=== PATIENT | male | born 1945 | race Caucasian/White ===

== ENCOUNTER 2019-03-13 16:11 | Emergency (ER) | payer MEDICARE, BC ==
[~2019-03-13] VITALS: Ht 182.9 cm; Wt 80.7 kg
[2019-03-13] MEDS ORDERED: normal saline 1000ML IV soln IVB ONE ×3 (17:00→19:50)
[2019-03-13 17:19] LABS: BASOPHILS % (AUTO) 0.2 % (0-1); EOSINOPHILS % (AUTO) 0.1 % (0-6); HEMATOCRIT 51.6 % (42.0-52.0); HEMOGLOBIN 17.5 g/dl (14.0-17.9); LYMPHOCYTES # (AUTO) 1.1 X10'3 (1.1-4.8); LYMPHOCYTES % (AUTO) 8.8 % (21-51); MEAN CORPUSCULAR HEMOGLOBIN 29.4 PG (27.0-31.0); MEAN CORPUSCULAR VOLUME 86.5 FL (78-98); MEAN PLATELET VOLUME 9.1 FL (7.4-10.4); MONOCYTES # (AUTO) 1.2 X10'3 (0-0.9); MONOCYTES % (AUTO) 9.3 % (2-12); NEUTROPHILS # (AUTO) 10.6 X10'3 (1.8-7.7); NEUTROPHILS % (AUTO) 81.6 % (42-75); PLATELET COUNT 280 X10'3 (140-440); RED BLOOD COUNT 5.97 X10'6 (4.70-6.10); RED CELL DISTRIBUTION WIDTH 13.8 % (11.5-14.5)
[2019-03-13 17:24] LABS: ALANINE AMINOTRANSFERASE 27 U/L (12-78); ALBUMIN 4.7 G/DL (3.4-5.0); ALBUMIN/GLOBULIN RATIO 1.2 (1.1-1.5); ALKALINE PHOSPHATASE 103 IU/L (46-116); ANION GAP 12 (8-16); ASPARTATE AMINO TRANSFERASE 17 U/L (10-37); BILIRUBIN,TOTAL 0.6 MG/DL (0.1-1.0); BLOOD UREA NITROGEN 27 MG/DL (7-18); BUN/CREATININE RATIO 16.3 (5.4-32.0); CHLORIDE 102 MMOL/L (99-107); CREATININE 1.66 MG/DL (0.60-1.10); GLUCOSE 119 MG/DL (70-104); MAGNESIUM 1.3 MG/DL (1.5-2.4); POTASSIUM 4.9 MMOL/L (3.5-5.1); SODIUM 135 MMOL/L (135-145); TOTAL CARBON DIOXIDE 20.6 MMOL/L (24-32); TOTAL PROTEIN 8.6 G/DL (6.4-8.2); eGFR 41 ML/MIN
--- NOTE | 2019-03-13 18:02 | NUR ---
PT UNABLE TO PROVIDE STOOL SAMPLE AT THIS TIME.
[2019-03-13] MEDS ORDERED: magnesium oxide 400mg tablet PO ONE ×2 (18:40→20:40)
[2019-03-13 20:00] VITALS: BP 101/62
[2019-03-13] MEDS ORDERED: DOXYCYCLINE 100MG CAPSULE PO STA (20:09)
[2019-03-13] MEDS ORDERED: MAGN200T8 PO (20:41)
== END 2019-03-13 20:53 | disposition home or self-care (01) ==
LOC: ER 16:12
DX: R19.7 Diarrhea, unspecified (principal); N28.9 Disorder of kidney and ureter, unspecified; E83.42 Hypomagnesemia; I10 Essential (primary) hypertension; J44.9 Chronic obstructive pulmonary disease, unspecified; F17.200 Nicotine dependence, unspecified, uncomplicated; Z98.890 Other specified postprocedural states; Z79.899 Other long term (current) drug therapy; Z90.89 Acquired absence of other organs
CPT/HCPCS: 36415; 80053; 83735; 85025; 87045; 87046; 89055; 96360; 96361; 99284; J7030; 87324; 87328; 87329; 87336; 87449

== ENCOUNTER 2021-11-13 09:50 | Day surgery (SDC) | payer MEDICARE, BC ==
[2021-11-11 14:09] LABS: BASOPHILS % (AUTO) 0.5 % (0-1); EOSINOPHILS # (AUTO) 0.1 X10'3 (0-0.9); EOSINOPHILS % (AUTO) 0.9 % (0-6); HEMATOCRIT 41.5 % (42.0-52.0); HEMOGLOBIN 14.1 g/dl (14.0-17.9); LYMPHOCYTES # (AUTO) 1.2 X10'3 (1.1-4.8); LYMPHOCYTES % (AUTO) 15.8 % (21-51); MEAN CORPUSCULAR HEMOGLOBIN 29.2 PG (27.0-31.0); MEAN CORPUSCULAR VOLUME 85.7 FL (78-98); MONOCYTES # (AUTO) 0.6 X10'3 (0-0.9); MONOCYTES % (AUTO) 8.2 % (2-12); NEUTROPHILS # (AUTO) 5.6 X10'3 (1.8-7.7); NEUTROPHILS % (AUTO) 74.6 % (42-75); PLATELET COUNT 252 X10'3 (140-440); RED BLOOD COUNT 4.84 X10'6 (4.70-6.10); RED CELL DISTRIBUTION WIDTH 13.8 % (11.5-14.5); WHITE BLOOD COUNT 7.5 X10'3 (4.5-11.0)
[2021-11-11 14:23] LABS: ALANINE AMINOTRANSFERASE 31 U/L (12-78); ALBUMIN/GLOBULIN RATIO 1.1 (1.1-1.5); ALKALINE PHOSPHATASE 103 IU/L (46-116); ANION GAP 11 (8-16); ASPARTATE AMINO TRANSFERASE 21 U/L (10-37); BILIRUBIN,TOTAL 0.7 MG/DL (0.1-1.0); BLOOD UREA NITROGEN 17 MG/DL (7-18); BUN/CREATININE RATIO 19.1 (5.4-32.0); CALCIUM 9.3 MG/DL (8.5-10.1); CHLORIDE 99 MMOL/L (99-107); CREATININE 0.89 MG/DL (0.60-1.10); GLUCOSE 124 MG/DL (70-104); POTASSIUM 4.3 MMOL/L (3.5-5.1); SODIUM 137 MMOL/L (135-145); TOTAL CARBON DIOXIDE 26.7 MMOL/L (24-32); TOTAL PROTEIN 7.5 G/DL (6.4-8.2); eGFR 83 ML/MIN
[2021-11-11 14:54] LABS: APTT 28 SECONDS (22-32)
[2021-11-13] VITALS (12 sets, daily range): BP systolic 111–148; BP diastolic 57–81
[~2021-11-13] VITALS: Ht 185.4 cm; Wt 92.9 kg
[~2021-11-13 09:50] MED LIST: MAGN200T8 PO
[2021-11-13] MEDS ORDERED: LORazepam 0.5 MG tablet PO PRN (10:10)
[2021-11-13] MEDS ORDERED: normal saline 1,000 ML IV SCH (10:10)
[2021-11-13] MEDS ORDERED: nitroGLYCERIN 0.4mg SUBLingual tab SL PRN (10:10)
[2021-11-13] MEDS ORDERED: diphenhydrAMINE 25mg capsule PO PRN (10:10)
[2021-11-13] MEDS ORDERED: AMLO10TA PO (10:30)
[2021-11-13] MEDS ORDERED: TIOT18CA3 INH (10:30)
[2021-11-13] MEDS ORDERED: OMEP40CA21 PO (10:30)
[2021-11-13] MEDS ORDERED: SILD100T PO (10:30)
[2021-11-13] MEDS ORDERED: IRBE150T51 PO (10:30)
[2021-11-13] MEDS ORDERED: HYDR-3965 PO (10:30)
[2021-11-13] MEDS ORDERED: ATOR40TA PO (10:30)
[2021-11-13] MEDS ORDERED: ALBU90AE INH (10:30)
[2021-11-13] MEDS ORDERED: ASPI81TA52 PO (10:30)
[2021-11-13] MEDS ORDERED: NAPR-56 PO (10:30)
[2021-11-13] MEDS ORDERED: fentaNYL/PF 50MCG/1 ML 2ML syringe ONE ×2 (11:35→12:31)
[2021-11-13] MEDS ORDERED: LIDOcaine 1% (10mg/ml)w/preservative injection 20ml MDV ONE (11:35)
[2021-11-13] MEDS ORDERED: midazolam 1 mg/ML 2ml injection ONE ×2 (11:35→12:31)
[2021-11-13] MEDS ORDERED: iohexol 350 MG/ML 50ML vial IV ONE ×2 (11:36→12:44)
[2021-11-13] MEDS ORDERED: heparin 1,000unit/ml 10ml vial 10 ML ONE (11:36)
[2021-11-13] MEDS ORDERED: iohexol 350MG/ML 100ml bottle IV ONE (11:36)
[2021-11-13] MEDS ORDERED: HYDROmorphone 1 mg/ml syringe ONE (13:05)
[2021-11-13] MEDS ORDERED: HYDROcodone/acetaminophen 10/325mg tab PO PRN (13:55)
[2021-11-13] MEDS ORDERED: proCHLORperazine 10 MG/2 ml inj IV PRN (13:55)
[2021-11-13] MEDS ORDERED: HYDROcodone/acetaminophen 5mg/325mg tablet PO PRN (13:55)
[2021-11-13] MEDS ORDERED: normal saline 1000ml 1,000 ML IV SCH (13:55)
[2021-11-13] MEDS ORDERED: acetaminophen 325mg tablet PO PRN (13:55)
[2021-11-13] MEDS ORDERED: ondansetron/PF 4mg/2ml inj IV PRN (13:55)
[2021-11-13 14:13] LABS: ISTAT Hct MIX 36 %PCV (42-52); ISTAT O2 SATURATION MIX VENOUS 72 % (60-80); ISTAT SOURCE BLNK
[2021-11-13 15:30] LABS: ISTAT HGB ART 12.6 g/dl (14.0-18.0); ISTAT Hct ART 37 %PCV (42-52); ISTAT O2 SATURATION ARTERIAL 97 % (95-98); ISTAT SOURCE BLNK
== END 2021-11-13 19:35 | disposition home or self-care (01) ==
LOC: SSTAY O 09:50
PROVIDERS: ATTEND Internal Medicine Cardiovascular Disease
DX: R94.39 Abnormal result of other cardiovascular function study (principal); I25.10 Atherosclerotic heart disease of native coronary artery without angina pectoris; I35.2 Nonrheumatic aortic (valve) stenosis with insufficiency; I10 Essential (primary) hypertension; E78.5 Hyperlipidemia, unspecified; J44.9 Chronic obstructive pulmonary disease, unspecified; I45.10 Unspecified right bundle-branch block; F17.210 Nicotine dependence, cigarettes, uncomplicated; Z86.16 Personal history of COVID-19; Z79.01 Long term (current) use of anticoagulants; Z79.899 Other long term (current) drug therapy
CPT/HCPCS: 36415; 71046; 80053; 82803; 85014; 85025; 85610; 85730; 93005; 93460; 93567; 99152; 99153; C1751; C1760; C1769; J1170; J1644; J2250; J3010; J3490; J7030; Q0163; Q9967; A4620; A6258

== ENCOUNTER 2023-01-28 10:42 | Outpatient (CLI) | payer OTHER ==
[~2023-01-28] VITALS: Ht 182.9 cm; Wt 90.7 kg
[~2023-01-28 10:42] MED LIST changes: +ALBU90AE INH; +AMLO10TA PO; +ASPI81TA52 PO; +ATOR40TA PO; +HYDR-3965 PO; +IRBE150T51 PO; -MAGN200T8 PO; +NAPR-56 PO; +OMEP40CA21 PO; +SILD100T PO; +TIOT18CA3 INH
[2023-01-28 11:24] LABS: BASOPHILS % (AUTO) 0.5 % (0-1); EOSINOPHILS # (AUTO) 0.1 X10'3 (0-0.9); HEMATOCRIT 42.8 % (42.0-52.0); HEMOGLOBIN 14.6 g/dl (14.0-17.9); LYMPHOCYTES # (AUTO) 1.1 X10'3 (1.1-4.8); LYMPHOCYTES % (AUTO) 15.9 % (21-51); MEAN CORPUSCULAR HEMOGLOBIN 29.6 PG (27.0-31.0); MEAN CORPUSCULAR VOLUME 86.9 FL (78-98); MEAN PLATELET VOLUME 8.3 FL (7.4-10.4); MONOCYTES # (AUTO) 0.8 X10'3 (0-0.9); MONOCYTES % (AUTO) 11.8 % (2-12); NEUTROPHILS # (AUTO) 4.9 X10'3 (1.8-7.7); NEUTROPHILS % (AUTO) 70.8 % (42-75); PLATELET COUNT 257 X10'3 (140-440); RED BLOOD COUNT 4.93 X10'6 (4.70-6.10); RED CELL DISTRIBUTION WIDTH 14.6 % (11.5-14.5); WHITE BLOOD COUNT 6.9 X10'3 (4.5-11.0)
[2023-01-28 11:29] LABS: APTT 29 SECONDS (22-32)
[2023-01-28 11:30] LABS: ALANINE AMINOTRANSFERASE 25 U/L (12-78); ALBUMIN 4.2 G/DL (3.4-5.0); ALBUMIN/GLOBULIN RATIO 1.2 (1.1-1.5); ALKALINE PHOSPHATASE 94 IU/L (46-116); ANION GAP 6 (8-16); ASPARTATE AMINO TRANSFERASE 20 U/L (10-37); BILIRUBIN,TOTAL 0.6 MG/DL (0.1-1.0); BLOOD UREA NITROGEN 21 MG/DL (7-18); BUN/CREATININE RATIO 19.6 (5.4-32.0); CALCIUM 9.4 MG/DL (8.5-10.1); CHLORIDE 102 MMOL/L (99-107); CREATININE 1.07 MG/DL (0.60-1.10); GLUCOSE 92 MG/DL (70-104); POTASSIUM 4.3 MMOL/L (3.5-5.1); SODIUM 138 MMOL/L (135-145); TOTAL CARBON DIOXIDE 30.4 MMOL/L (24-32); TOTAL PROTEIN 7.6 G/DL (6.4-8.2); eGFR 67 ML/MIN
[2023-01-28] MEDS ORDERED: IODIXANOL 320 MG/ML INFUS..BTL 100ML IV ONE (12:02)
[2023-01-28] MEDS ORDERED: albuterol 2.5 MG/3 ML nebule NEB PRN (13:25)
[2023-01-28 13:31] LABS: ABG BASE EXCESS -1.7 mmol/L (-2.0-2.0); ABG HCO3 22.7 mmol/L (22.0-26.0); ABG OXYGEN SATURATION 93.6 % (94-97); ABG PCO2 (T) 37.6 mmHg (35.0-48.0); ABG PO2 (T) 68.6 mmHg (75.0-100.0); ALLEN'S TEST POSITIVE; FMetHb 0.3 % (0.0-1.5); FO2Hb 92.4 % (94-97); TOTAL HEMOGLOBIN 14.5 G/dl (14.0-17.9)
== END 2023-01-28 23:59 | disposition home or self-care (01) ==
LOC: RAD 10:42
PROVIDERS: ATTEND Internal Medicine Cardiovascular Disease
DX: Z01.818 Encounter for other preprocedural examination (principal); R94.2 Abnormal results of pulmonary function studies; J98.4 Other disorders of lung; I71.43 Infrarenal abdominal aortic aneurysm, without rupture; I70.0 Atherosclerosis of aorta; I25.10 Atherosclerotic heart disease of native coronary artery without angina pectoris; J43.9 Emphysema, unspecified; R91.8 Other nonspecific abnormal finding of lung field; K76.0 Fatty (change of) liver, not elsewhere classified; K57.30 Diverticulosis of large intestine without perforation or abscess without bleeding; M43.8X6 Other specified deforming dorsopathies, lumbar region; M41.86 Other forms of scoliosis, lumbar region; M47.818 Spondylosis without myelopathy or radiculopathy, sacral and sacrococcygeal region; M47.814 Spondylosis without myelopathy or radiculopathy, thoracic region; I35.0 Nonrheumatic aortic (valve) stenosis; I65.29 Occlusion and stenosis of unspecified carotid artery; Z87.891 Personal history of nicotine dependence; Z79.82 Long term (current) use of aspirin; Z79.899 Other long term (current) drug therapy; Z95.828 Presence of other vascular implants and grafts
CPT/HCPCS: 36415; 36600; 71046; 71275; 74174; 80053; 82803; 85018; 85025; 85610; 85730; 94060; 94727; 94729; 94760; J3490; Q9967

== ENCOUNTER 2023-05-14 07:01 | Inpatient (IN) | payer MEDICARE, BC ==
[2023-05-08 11:44] LABS: BASOPHILS % (AUTO) 0.4 % (0-1); EOSINOPHILS % (AUTO) 0.6 % (0-6); LYMPHOCYTES # (AUTO) 0.9 X10'3 (1.1-4.8); LYMPHOCYTES % (AUTO) 13.1 % (21-51); MEAN CORPUSCULAR HEMOGLOBIN 28.6 PG (27.0-31.0); MEAN CORPUSCULAR HGB CONC 33.3 g/dL (33.0-36.5); MEAN CORPUSCULAR VOLUME 85.8 FL (78-98); MEAN PLATELET VOLUME 8.6 FL (7.4-10.4); MONOCYTES # (AUTO) 0.6 X10'3 (0-0.9); MONOCYTES % (AUTO) 9.7 % (2-12); NEUTROPHILS # (AUTO) 5.1 X10'3 (1.8-7.7); NEUTROPHILS % (AUTO) 76.2 % (42-75); PRE OP HEMATOCRIT 44.1 % (42.0-52.0); PRE OP HEMOGLOBIN 14.7 g/dL (14.0-17.9); PRE OP PLATELET COUNT 272 X10'3 (140-440); RED BLOOD COUNT 5.14 X10'6 (4.70-6.10); RED CELL DISTRIBUTION WIDTH 14.4 % (11.5-14.5)
[2023-05-08 11:56] LABS: PRE OP PROTIME 10.6 SECONDS (9.0-12.0)
[2023-05-08 12:04] LABS: ALBUMIN 4.3 G/DL (3.4-5.0); ALBUMIN/GLOBULIN RATIO 1.2 (1.1-1.5); ALKALINE PHOSPHATASE 100 IU/L (46-116); BLOOD UREA NITROGEN 12 MG/DL (7-18); BUN/CREATININE RATIO 11.1 (10.0-20.0); CALCIUM 9.5 MG/DL (8.5-10.1); CHLORIDE 103 MMOL/L (99-107); CREATININE 1.08 MG/DL (0.60-1.10); PRE OP ALT 36 U/L (30-65); PRE OP ANION GAP 12 (8-16); PRE OP AST 23 U/L (10-37); PRE OP BILIRUB, TOTAL 0.4 MG/DL (0.0-1.0); PRE OP GLUCOSE 85 MG/DL (70-104); PRE OP SODIUM 141 MMOL/L (135-145); TOTAL CARBON DIOXIDE 25.7 MMOL/L (24-32); TOTAL PROTEIN 7.8 G/DL (6.4-8.2); eGFR 66 ML/MIN
[~2023-05-14] VITALS: Ht 185.4 cm; Wt 91.3 kg
[2023-05-14] VITALS (25 sets, daily range): BP systolic 120–190; BP diastolic 64–93
[~2023-05-14 07:01] MED LIST changes: -ALBU90AE INH; +ALBU90AE2 INH; +ALEN70TA14 PO; +ASPI-920 PO; -ASPI81TA52 PO; +HYDR12.55 PO; +LIDOcaine 1% (10mg/ml) 2ml vial ONE; +OMEP20CA16 PO; -OMEP40CA21 PO; -TIOT18CA3 INH; +TIOT4MIS5 INH; +aspirin 325mg tablet PO ONE; +cefazolin/dext.iso 2gm/100ml IVPB IV ONE; +famotidine 20mg tablet PO ONE; +ondansetron/PF 4mg/2ml inj IV PRN; +ringers solution, lacted 1,000 ML IV SCH
[2023-05-14] MEDS ORDERED: protamine sulfate 10mg/ml inj. ONE (07:38)
[2023-05-14] MEDS ORDERED: HYDR12.55 PO (08:10)
[2023-05-14 08:36] LABS: CLARITY,URINE CLEAR (Clear); COLOR,URINE YELLOW (Yellow); GLUCOSE, URINE NEGATIVE (Neg); KETONES,URINE NEGATIVE (Neg); LEUKOCYTE ESTERASE ,URINE NEGATIVE (Neg); NITRITES, URINE NEGATIVE (Neg); OCCULT BLOOD,URINE NEGATIVE (Neg); PH,URINE 6.5 (4.8-8.0); PROTEIN,URINE NEGATIVE (Neg); UROBILINOGEN,URINE 0.2 E.U/dL (0.2-1.0)
[2023-05-14 08:38] LABS: UA COLLECTION TYPE VOIDED
[2023-05-14] MEDS ORDERED: iohexol 350MG/ML 100ml bottle IV ONE (10:34)
[2023-05-14] MEDS ORDERED: LIDOcaine 1% (10mg/ml)w/preservative inj. 20ml MDV ONE (10:34)
[2023-05-14] MEDS ORDERED: heparin 1,000 UNITS/NS 500ml 1,500 ML ONE (10:35)
[2023-05-14] MEDS ORDERED: midazolam 1 mg/ML 2ml injection ONE (10:39)
[2023-05-14] MEDS ORDERED: fentaNYL/PF 50MCG/1 ML 2ML syringe ONE (10:39)
[2023-05-14] MEDS ORDERED: propofol inj 20 ML IV ONE ×2 (10:40→10:41)
[2023-05-14] MEDS ORDERED: sevoflurane 250ml liquid IH ONE (10:41)
[2023-05-14] MEDS ORDERED: heparin 1,000unit/ml 10ml vial 10 ML ONE ×2 (10:41→11:29)
[2023-05-14] MEDS ORDERED: albuterol 2.5 MG/3 ML nebule NEB PRN (10:55)
[2023-05-14] MEDS ORDERED: HYDROcodone/acetaminophen 5mg/325mg tablet PO PRN (10:55)
[2023-05-14] MEDS ORDERED: naproxen 500mg tablet PO PRN (10:55)
[2023-05-14] MEDS ORDERED: ondansetron/PF 4mg/2ml inj IV PRN ×2 (11:55→12:00)
[2023-05-14] MEDS ORDERED: meperidine/PF 25mg/ml syringe IV PRN ×2 (11:55)
[2023-05-14] MEDS ORDERED: proCHLORperazine 10 MG/2 ml inj IV PRN ×2 (11:55→12:00)
[2023-05-14] MEDS ORDERED: morphine 4 MG/ML inj SYRINge IV PRN (11:55)
[2023-05-14] MEDS ORDERED: ringers solution, lacted 1,000 ML IV SCH (11:55)
[2023-05-14] MEDS ORDERED: morphine 2 MG/ML inj. syringe IV PRN (11:55)
[2023-05-14] MEDS ORDERED: hydrALAZINE 20mg/ml inj. IV PRN (12:00)
[2023-05-14] MEDS ORDERED: potassium Cl 20mEq/100mL bag 100 ML IV PRN (12:00)
[2023-05-14] MEDS ORDERED: potassium Cl 40MEQ/1/2NS 520ml 520 ML IV PRN (12:00)
[2023-05-14] MEDS ORDERED: magnesium 2GM in 50ml NS 50 ML IV PRN (12:00)
[2023-05-14] MEDS ORDERED: diphenhydrAMINE 25mg capsule PO PRN (12:00)
[2023-05-14] MEDS ORDERED: labetalol 20mg/4ml (5mg/ml) syringe IV PRN (12:00)
[2023-05-14] MEDS ORDERED: docusate sod 100mg capsule PO PRN (12:00)
[2023-05-14] MEDS ORDERED: acetaminophen 325mg tablet PO PRN (12:00)
[2023-05-14] MEDS ORDERED: pantoprazole 40mg Tablet.DR PO PRN (12:00)
[2023-05-14] MEDS ORDERED: magnesium 4gm in 100ml NS 100 ML IV PRN (12:00)
[2023-05-14] MEDS ORDERED: ALPRAZolam 0.25mg tablet PO PRN (12:00)
[2023-05-14] MEDS ORDERED: potassium CL 10mEq/100ml bag 100 ML IV PRN (12:00)
[2023-05-14] MEDS ORDERED: potassium Cl 20 mEq SR tablet PO PRN (12:00)
[2023-05-14] MEDS: normal saline 1000ml 1,000 ML IV SCH ×2 (12:00→22:00)
[2023-05-14] MEDS ORDERED: potassium Cl 40MEQ/270ML bag 250 ML IV PRN (12:00)
[2023-05-14] MEDS: nitroPRUSSIDE (NIPRIDE) (200MCG/ML) 100ML Drip IV SCH ×2 (12:13→19:56)
[2023-05-14] MEDS: phenylephrine inj 50 MG in normal saline 250ml IV solN IV SCH ×2 (12:13→23:48)
--- NOTE | 2023-05-14 12:13 | NUR ---
Received from OR via BED, accompanied by Anesthesiologist DR. GRAVES and report given by Anesthesiologist AND OR NURSE. PT ARRIVED DROWSY BUT ABLE TO RESPOND TO VERBAL STIMULI ON 6L OF 02 VIA MASK. VSS. PT HAS 18 G IV TO LEFT FOREARM AND ART LINE TO LEFT WRIST AND PRESSURE DEVICE INTACT. PT HAS DRESSING TO BILATERAL GROIN THAT ARE C/D/I, NO SWELLING OR BLEEDING NOTED. LR AND NIPRIDE CURRENTLY RUNNING. NEURO ASSESSMENT COMPLETED. PUSH, PULL, LOCOMOTIVE ENGINEER DIESEL, SMILE ALL WITHIN NORMAL LIMITS. BILATERAL PEDAL PULSES STRONG. VSS. WILL CONTINUE TO MONITOR AND RECHECK GROIN SITES. Addendum: 05/14/23 at 1416 by Mp Junior RN Amended: Links added.
[2023-05-14] MEDS: meperidine/PF 25mg/ml syringe IV PRN ×2 (12:19→13:16)
[2023-05-14] MEDS: HYDROcodone/acetaminophen 5mg/325mg tablet PO PRN ×2 (14:09→20:02)
--- NOTE | 2023-05-14 15:08 | NUR ---
PATIENT HAS MET ALL CRITERIA FOR TRANSFER TO PCU FLOOR. VSS. DRESSINGS INTACT. BED LOW, CALL LIGHT PRESENT AND 2 RAILS UP. RN PRESENT TO ACCEPT CARE OF PATIENT AND REPORT HAS BEEN CALLED. ALL QUESTIONS ANSWERED TO ACCEPTING RN. Addendum: 05/14/23 at 1521 by Mp Junior RN Amended: Links added.
[2023-05-14] MEDS: sod chloride 0.9% 10ml flush syringe IV SCH (16:43)
[2023-05-14] MEDS: ceFAZolin 1GM/D5W- ADD-VANTAGE 50 ML IV SCH (17:10)
--- NOTE | 2023-05-14 18:55 | NUR ---
Problems reprioritized. Patient report given, questions answered & plan of care reviewed with Sabi WILLSON, patient stable at transfer of care.
[2023-05-14] MEDS: vancomycin/NS 1 GM ADD-VANTAGE 250 ML IV SCH (20:02)
[2023-05-15] MEDS: sod chloride 0.9% 10ml flush syringe IV SCH ×2 (00:49→07:45)
[2023-05-15] MEDS: normal saline 1000ml 1,000 ML IV SCH (00:50)
[2023-05-15] MEDS: ceFAZolin 1GM/D5W- ADD-VANTAGE 50 ML IV SCH ×2 (00:50→08:38)
[2023-05-15 02:00] VITALS: BP 146/74
[2023-05-15] MEDS: ipratropium 0.5 MG/2.5ML nebule NEB SCH ×2 (02:54→08:28)
[2023-05-15 06:00] VITALS: BP 144/69
--- NOTE | 2023-05-15 06:15 | NUR ---
Patient in room PCU 3015. I have received report from DEEMTRIS Celestin and had the opportunity to ask questions and assume patient care.
--- NOTE | 2023-05-15 06:34 | NUR ---
Problems reprioritized. Patient report given, questions answered & plan of care reviewed with Lucía WILLSON. Addendum: 05/15/23 at 0634 by Sabi Gregory RN Amended: Links added.
[2023-05-15] MEDS: HYDROcodone/acetaminophen 5mg/325mg tablet PO PRN (06:57)
[2023-05-15] MEDS ORDERED: atorvastatin 20mg tablet PO SCH (08:00)
[2023-05-15] MEDS ORDERED: losartan 50mg tablet PO SCH (08:00)
[2023-05-15] MEDS ORDERED: HYDROchlorothiazide 12.5mg capsule PO SCH (08:00)
[2023-05-15] MEDS ORDERED: aspirin 81mg tab.chew PO SCH ×2 (08:00→08:30)
[2023-05-15] MEDS ORDERED: amLODIPine 5mg tablet PO SCH (08:00)
[2023-05-15] MEDS ORDERED: pantoprazole 40mg Tablet.DR PO SCH (08:00)
[2023-05-15 08:40] LABS: BASOPHILS % (AUTO) 0.2 % (0-1); EOSINOPHILS % (AUTO) 0.4 % (0-6); HEMATOCRIT 36.4 % (42.0-52.0); HEMOGLOBIN 12.1 g/dl (14.0-17.9); LYMPHOCYTES # (AUTO) 0.5 X10'3 (1.1-4.8); LYMPHOCYTES % (AUTO) 6.8 % (21-51); MEAN CORPUSCULAR HEMOGLOBIN 28.5 PG (27.0-31.0); MEAN CORPUSCULAR HGB CONC 33.2 g/dL (33.0-36.5); MEAN CORPUSCULAR VOLUME 85.7 FL (78-98); MEAN PLATELET VOLUME 8.5 FL (7.4-10.4); MONOCYTES # (AUTO) 0.9 X10'3 (0-0.9); MONOCYTES % (AUTO) 13.5 % (2-12); NEUTROPHILS # (AUTO) 5.4 X10'3 (1.8-7.7); NEUTROPHILS % (AUTO) 79.1 % (42-75); PLATELET COUNT 193 X10'3 (140-440); RED BLOOD COUNT 4.25 X10'6 (4.70-6.10); RED CELL DISTRIBUTION WIDTH 14.6 % (11.5-14.5); WHITE BLOOD COUNT 6.8 X10'3 (4.5-11.0)
[2023-05-15 09:01] LABS: ALANINE AMINOTRANSFERASE 28 U/L (12-78); ALBUMIN 3.1 G/DL (3.4-5.0); ALKALINE PHOSPHATASE 82 IU/L (46-116); ANION GAP 6 (8-16); ASPARTATE AMINO TRANSFERASE 21 U/L (10-37); BILIRUBIN,TOTAL 0.6 MG/DL (0.1-1.0); BLOOD UREA NITROGEN 7 MG/DL (7-18); BUN/CREATININE RATIO 7.9 (10.0-20.0); CHLORIDE 105 MMOL/L (99-107); CREATININE 0.89 MG/DL (0.60-1.10); GLUCOSE 111 MG/DL (70-104); MAGNESIUM 1.3 MG/DL (1.5-2.4); POTASSIUM 3.8 MMOL/L (3.5-5.1); SODIUM 141 MMOL/L (135-145); TOTAL CARBON DIOXIDE 29.9 MMOL/L (24-32); TOTAL PROTEIN 6.2 G/DL (6.4-8.2); eGFR 83 ML/MIN
[2023-05-15] MEDS: vancomycin/NS 1 GM ADD-VANTAGE 250 ML IV SCH (10:08)
[2023-05-15 11:00] VITALS: BP 132/66
[2023-05-15] MEDS ORDERED: magnesium 2GM in 50ml NS 50 ML IV ONE (11:20)
[2023-05-15] MEDS ORDERED: MAGN200T PO (12:16)
--- NOTE | 2023-05-15 14:30 | NUR ---
DC inst provided to pt. IV DC'd, tip intact. All belongings sent w/pt. WC to vehicle.
== END 2023-05-15 14:44 | disposition home or self-care (01) | DRG 266 ==
LOC: PAS IN 07:01 → PCU 3S 15:35
PROVIDERS: ADMIT Internal Medicine Cardiovascular Disease; ATTEND Internal Medicine Cardiovascular Disease
PROC: B41D1ZZ Fluoroscopy of Aorta and Bilateral Lower Extremity Arteries using Low Osmolar Contrast (ICD-10-PCS; 2023-05-14)
PROC: 02RF38Z Replacement of Aortic Valve with Zooplastic Tissue, Percutaneous Approach (ICD-10-PCS; principal; 2023-05-14 10:41)
DX: I35.0 Nonrheumatic aortic (valve) stenosis (principal); Z00.6 Encounter for examination for normal comparison and control in clinical research program; I50.33 Acute on chronic diastolic (congestive) heart failure; I25.10 Atherosclerotic heart disease of native coronary artery without angina pectoris; E78.5 Hyperlipidemia, unspecified; I11.0 Hypertensive heart disease with heart failure; G47.33 Obstructive sleep apnea (adult) (pediatric); Z87.891 Personal history of nicotine dependence
CPT/HCPCS: 33361; 36415; 71045; 71046; 76937; 80053; 81003; 82948; 83735; 83880; 85025; 85347; 85610; 85730; 86885; 86900; 86901; 86920; 87081; 93005; 93308; 94640; 94760; A4615; A4618; A6258; A6449; C1756; C1760; C1769; C1894; G0378; J0360; J0690; J1644; J2175; J2250; J2270; J2370; J2405; J2704; J2720; J3010; J3370; J3475; J3490; J7030; J7040; J7050; J7120; Q9967

== ENCOUNTER 2025-04-13 16:53 | Emergency (ER) | payer OTHER, MEDICARE, BC ==
[~2025-04-13] VITALS: Ht 185.4 cm; Wt 93.2 kg
[~2025-04-13 16:53] MED LIST changes: -ALBU90AE2 INH; +ALBU90AE3 INH; -LIDOcaine 1% (10mg/ml) 2ml vial ONE; +MAGN200T PO; -aspirin 325mg tablet PO ONE; -cefazolin/dext.iso 2gm/100ml IVPB IV ONE; -famotidine 20mg tablet PO ONE; -ondansetron/PF 4mg/2ml inj IV PRN; -ringers solution, lacted 1,000 ML IV SCH
[2025-04-13 16:55] VITALS: TEMP 98
--- NOTE | 2025-04-13 18:50 | RADIOLOGY REPORT ---
EXAM: DI HIP UNILATERAL 2 VIEWS INDICATION: HIP PAIN TECHNIQUE: 3 views of the right hip COMPARISON: None FINDINGS/IMPRESSION: Question cortical irregularity of the right inferior pubic ramus which may represent nondisplaced fra cture. Diffusely decreased bone mineralization. Vascular calcifications. Mild bilateral superior hip joint space loss. Endovascular stent graft in the abdominal aorta in bilateral iliac limbs.
[2025-04-13 20:17] VITALS: BP 149/76; PULSE 66; O2SAT 94
--- NOTE | 2025-04-13 20:22 | RADIOLOGY REPORT ---
Exam: CT CT PELVIS History: RIGHT HIP PAIN Comparison Study: Hip radiograph 04/13/2024 TECHNIQUE: Multidetector CT of the pelvis without IV contrast. Axial, coronal and sagittal multiplana r reformats were obtained from the axial data set by the technologist. Radiation Dose Information: CT Dose: CTDI volume is 16.68 mGy. Dose-length product is 647.06 mGy*cm FINDINGS: There is subtle linear lucency of the right inferior pubic ramus with questionable mild adjacent soft tissue edema. Correlate for nondisplaced fracture. There is diffuse demineralization. Mild degenera tive changes of bilateral hips. Pjme-mp-[id number] loss of vertebral body height of L4 and L5. Sclerotic focus of the L5 vertebral bod y which may represent a bone islands/blastic lesion. Severe degenerative changes at L 3 L4 and L4-L5 with vacuum disc phenomenon. 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 Prostate is normal in size with Foci of calcification. Small fat containing bilateral inguinal hernia s. Appendix is unremarkable. Large amount of fecal material within the cecum and partially visualized ascending colon. Fluid-filled distended small bowel loops within the Lower abdomen and pelvis measur ing up to 3.2 cm.. IMPRESSION: There is questionable nondisplaced fracture of the right inferior pubic ramus. Recommend correlation with point tenderness and consider MRI for further evaluation if clinically indicated Fluid-filled distended small bowel loops within the Lower abdomen and pelvis measuring up to 3.2 cm. Correlate for bowel obstruction/ ileus.
[2025-04-13] MEDS ORDERED: PER5325T PO (20:58)
--- NOTE | 2025-04-13 20:59 | Physician Documentation ---
History of Present Illness ~ Chief Complaint: Hip pain Stated Complaint: HIP PAIN Time Seen by MD: 20:08 OK to notify your PCP?: Yes Primary Medical Doctor: Dr. Sam Source: patient Mode of Arrival: POV Exam Limitations: no limitations HPI Chief Complaint: Right groin pain Caveat: None Independent Historians: None History of Present Illness: Patient is a 79-year-old man who had a fall earlier prior to arrival outside at home. Patient landed onto his right side. Patient complains of 10/10 pain in the right groin when he tries to walk or move. Pain at rest is 7/10. Pain is described as sharp. No other alleviating or exacerbating factors. No other associated symptoms. Patient denies any rib pain. No other extremity pain. No neck pain or back pain from the fall. No injury to the head. Review of systems: All systems were reviewed and are negative except for what is indicated in the history of present illness. Past Medical History: Aortic stenosis repaired by TAVR, hyperlipidemia, chronic pain, arthritis Past Surgical History: Noncontributory, many orthopedic surgeries Social History: No tobacco use, no drug use, Medications: Reviewed as documented Nursing Notes Allergies: Reviewed as documented in Nursing Notes Tetanus within 5 Years?: Yes Medication Reconciliation Allergies: Coded Allergies: bee venom protein (honey bee) (Unverified Allergy, Unknown, 04/13/25) bee pollen (Verified Adverse Reaction, Severe, 05/14/23) Scheduled Alendronate Sodium (Alendronate Sodium), 1 TAB PO Q7D, (Reported) Amlodipine Besylate (Amlodipine Besylate), 1 TABLET PO DAILY, (Reported) Aspirin (Aspirin Chewable), 81 MG PO DAILY, (Reported) Atorvastatin Calcium* (Lipitor*), 1 TAB PO DAILY, (Reported) Hydrochlorothiazide (Hydrochlorothiazide), 1 TAB PO DAILY, (Reported) Irbesartan* (Avapro*), 150 MG PO DAILY, (Reported) Magnesium (Magnesium), 1 TAB PO DAILY Omeprazole (Omeprazole), 1 CAP PO DAILY, (Reported) Sildenafil Citrate* (Viagra*), 1 TAB PO QDAY PRN, (Reported) Tiotropium [place] (Spiriva Respimat), 2.5 MCG INH QAM, (Reported) Scheduled PRN Albuterol Sulfate (Proair Digihaler), 2 PUFFS INH Q6H PRN for SOB or wheezing, (Reported) Hydrocodone Bit/Acetaminophen 5/325 MG ([place] 5/325 MG), 1 TAB PO Q4H PRN for moderate or severe pain, (Reported) Naproxen (Naproxen), 500 MG PO BID PRN for pain, (Reported) Past Medical History Past Medical History: Hypertension, COPD Past Surgical History: orthopedic surgeries, other Other Past Surgical History: hemorrhoidectomy Alcohol Use: None Lives with: Spouse Lives In: Home Review of Systems All Other Systems at this time: Reviewed and Negative ROS Patient denies any other acute symptoms other than above. All other systems are negative Physical Exam Vital Signs: RN Vital Signs have been reviewed: Yes, Temperature: 98.0, Source: Temporal, Heart Rate: 66, Respiratory Rate: 19, BP: 149/76, Pulse Oximetry: 94, Weight: 93.180 Oxygen Flow Rate: 0 Pulse Oximetry Reflects: adequate oxygenation Physical Exam General Appearance: No distress HEENT: Normal OP, moist oral mucosa, PERRL, EOMI Neck: supple, normal ROM, trachea midline Pulmonary: No respiratory distress, CTA, BS equal Cardiac: RRR, no murmur, rub or gallop, GI: nondistended, soft, nontender, normal bowel sounds, no guarding, no rebound , right groin pain Extremities: normal ROM, no swelling, non-tender, hips are nontender, ischium is nontender, right groin is tender to palpation Skin: intact, dry, warm, no rashes Neuro: AAOx3, speech is clear, no focal motor weakness Psych: normal affect, good eye contact, no apparent hallucination, normal speech Progress Results/Orders Results/Orders Orders - STEPHAN COUGHLIN MD Ct Pelvis (04/13/25 19:06) Ketorolac Trometh 15mg/Ml Vial (Toradol (04/13/25 20:55) Completed Orders - STEPHAN COUGHLIN MD Ct Pelvis (04/13/25 19:06) Vital Signs 04/13/25 04/13/25 04/13/25 16:55 20:17 20:36 Temp 98.0 Pulse 98 66 Resp 16 19 B/P (MAP) 146/74 149/76 (100) Pulse Ox 94 94 O2 Flow Rate 0 0 Medical Decision Making Findings Emergency department course and medical decision-making: Patient presents with right groin pain after a fall. Patient likely has a nondisplaced inferior ramus fracture. Patient is ambulatory. Patient is given Toradol 15 mg IM for pain. Patient is given instructions for pelvic infection instructed to follow up with his primary care doctor. Patient may have pulled a muscle. Patient is stable for discharge. Patient is neurologically intact and no other injuries were identified. Departure Time of Disposition: 20:57 Disposition: 01 HOME / SELF CARE / HOMELESS Impression: Primary Impression: Pulled muscle Condition: Stable Discharge Instructions: Simple Pelvic Fracture, Adult Additional Instructions: FOLLOW UP WITH YOUR PRIMARY CARE DOCTOR. Prescriptions Oxycodone Hcl/Acetaminophen 5/325 MG* (Percocet 5/325 MG*) 5 Mg/325 Mg Tablet 1 TAB PO TID PRN PRN for pain for 5 Days, #15 TAB Prov: STEPHAN COUGHLIN MD 04/13/25 Education Educated: Patient Educated regarding: diagnosis, treatment, need for follow up Signature Scribe Signature: No Scribe Attestation: No scribe STEPHAN COUGHLIN MD April 13, 2025 20:59
[2025-04-13 21:13] VITALS: RESP 14
[2025-04-13] MEDS: ketorolac trometh 15mg/ml vial 15 MG/ML ML IM ONE (21:13)
== END 2025-04-13 21:18 | disposition home or self-care (01) ==
LOC: ER 16:53
DX: S39.011A Strain of muscle, fascia and tendon of abdomen, initial encounter (principal); E78.5 Hyperlipidemia, unspecified; I10 Essential (primary) hypertension; J44.9 Chronic obstructive pulmonary disease, unspecified; Z91.030 Bee allergy status; W19.XXXA Unspecified fall, initial encounter; Y93.89 Activity, other specified; Y92.89 Other specified places as the place of occurrence of the external cause; Y99.8 Other external cause status
CPT/HCPCS: 72192; 73502; 96372; 99285; J1885